=== PATIENT | female | born 1995 | race Caucasian/White ===

== ENCOUNTER 2018-06-18 07:31 | Emergency (ER) | payer OTHER ==
[~2018-06-18] VITALS: Ht 162.6 cm; Wt 93.9 kg
[2018-06-18 07:38] VITALS: Ht 162.6 cm; Wt 93.9 kg
[2018-06-18 09:07] VITALS: BP 133/78
== END 2018-06-18 09:07 | disposition home or self-care (01) ==
LOC: ED 07:31
DX: J06.9 Acute upper respiratory infection, unspecified (principal); E11.9 Type 2 diabetes mellitus without complications
CPT/HCPCS: J7620

== ENCOUNTER 2018-06-18 13:00 | Inpatient (IN) | payer OTHER ==
[~2018-06-18] VITALS: Ht 162.6 cm; Wt 94.1 kg
--- NOTE | 2018-06-18 13:27 | NUR ---
PT SENT BACK TO [facility] TO AWAIT FOR BED AVAILABILITY. PT IS AWAKE AND ALERT, SPEAKING IN FULL CLEAR SENTENCES, AMBULATORY WITH STEADY GAIT.
--- NOTE | 2018-06-18 13:42 | NUR ---
PT PRESENTS TO ED WITH C/O FEVER, CHILLS, COUGH SINCE LAST NIGHT. PT STS SHE WAS SEEN HERE IN ED THIS MORNING AND WAS DC'D HOME WITH URI DX. PT STS SHE HAD A FEVER SPIKE AT HOME AND HER COUGH IS GETTING WORSE. PT STS SHE IS COUGHING UP A LOT OF PHLEGM. PT DENIES CHEST PAIN, ABDOMINAL PAIN, OR SOB. PT ON MONITOR. PT SITTING UP ON GURNEY IN POSITION OF COMFORT, AAOX4, RESP E/U, WHEEZING HEARD IN BILATERAL LUNGS, NO ACUTE DISTRESS NOTED AT THIS TIME.
[2018-06-18 14:48] LABS: BASOPHIL % 0.4 % (0-2); CALCIUM 8.5 mg/dL (8.5-10.1); CARBON DIOXIDE 24.6 mmol/L (21-32); CHLORIDE SERUM 105 mmol/L (98-107); CREATININE SERUM 0.6 mg/dL (0.6-1.0); GFR1 > 60 mL/min; GLUCOSE SERUM 121 mg/dL (74-106); PLATELET COUNT 314 x10^3mcL (130-400); POTASSIUM SERUM 3.5 mmol/L (3.5-5.1); SODIUM SERUM 141 mmol/L (136-145)
[2018-06-18 14:50] LABS: RED CELL DISTRIBUTION WIDTH 14.9 % (11.5-14.5)
[2018-06-18 14:56] LABS: FREE T4 0.86 ng/dL (0.76-1.46); FREE THYROXINE INDEX 2.2 ug/dL (1.4-4.5); T4(THYROXINE) 7.3 ug/dL (4.7-13.3)
[2018-06-18 15:02] LABS: T3 TOTAL 1.2 ng/mL
[2018-06-18 15:05] LABS: ALBUMIN 3.7 g/dL (3.4-5.0); ALKALINE PHOSPHATASE 91 U/L (46-116); ALT/SGPT 27 U/L (14-59); AST/SGOT 18 U/L (15-37); BILIRUBIN TOTAL 0.5 mg/dL (0.20-1.00); C REACTIVE PROTEIN 3.9 mg/dL (<=0.9); TOTAL PROTEIN, SERUM 7.7 g/dL (6.4-8.2)
[2018-06-18 15:14] LABS: CK-MB 0.7 ng/mL (0-3.6)
[2018-06-18 15:22] LABS: UA SPECIFIC GRAVITY <=1.005 (1.005-1.035); microscopic required? YES; urine erythrocyte 2+ (NEGATIVE)
--- NOTE | 2018-06-18 16:02 | NUR ---
X2 ATTEMPTS WERE MADE TO OBTAIN IV ACCESS, NO SUCCESS. PT TOLERATED WELL.
[2018-06-18 16:05] LABS: AMPHETAMINE QUAL UR NONE DETECTED (See below)
--- NOTE | 2018-06-18 16:21 | NUR ---
ATTEMPTED X3. SUCCESSFUL IV IN PLACE TO UPPER RIGHT FA. PER [employer] REP, "SHOULD BE OKAY" FOR CT ANGIO. CT AWARE THAT IV PLACED, FLUSHES WELL, SECURED WITH TEGADERM. PT TOLERATED WELL.
--- NOTE | 2018-06-18 16:31 | NUR ---
PT OFF FLOOR TAKEN TO CT
[2018-06-18 16:39] LABS: ERYTHROCYTE SED RATE 25 mm/hr (0-20)
--- NOTE | 2018-06-18 17:56 | NUR ---
PT SITTING UP ON GURNEY IN POSITION OF COMFORT, AAOX4, RESP E/U, NO ACUTE DISTRESS NOTED AT THIS TIME.
--- NOTE | 2018-06-18 18:50 | NUR ---
PER DR. BAILEY HOLD SENDING PT UNTIL HE SPEAKS TO ADMITTING MD.
[2018-06-18 19:00] LABS: MAGNESIUM 1.8 mg/dL (1.8-2.4); PHOSPHOROUS 2.7 mg/dL (2.5-4.9)
[2018-06-18 19:07] LABS: CHOLESTEROL/HDL RATIO 3.9
[2018-06-18 19:16] VITALS: BP 118/58
--- NOTE | 2018-06-18 19:31 | NUR ---
REPORT GIVEN TO REECE LE ON TELE UNIT TO ASSUME CARE OF PT.
--- NOTE | 2018-06-18 19:47 | NUR ---
RECEIVED PT FROM ED VIA [facility], CAME IN DUE TO SOB AND COUGH. AAOX4. DENIES HEADACHE/DIZZINESS. C/O SOB WORSE ON AMBULATION, O2 SAT=96% ON 2LPM/NC. WHEEZES NOTED ON RIGHT SIDE OF THE LUNG. W/ NON-PRODUCTIVE COUGH. C/O 7/10 PRESSURE CHEST PAIN, NON-RADIATING. SINUS TACHYCARDIA, WW=[id number]. C/O MILD NAUSEA. DENIES ABDOMINAL PAIN. VOIDS. IV SITE ON THE RFA IS PATENT AND INTACT. SIDE RAILS UPX2. CALL LIGHT ON REACH. ENDORSED TO PRIMARY NURSE REY FOR CONTINUITY OF CARE
[2018-06-18 19:57] VITALS: BP 97/59
[2018-06-18 20:06] VITALS: Ht 162.6 cm; Wt 94.1 kg
--- NOTE | 2018-06-19 04:40 | NUR ---
PT SLEPT WELL ALL NIGHT.BREATHING EASY AND NON-LABORED WITH OCCASSIONAL COUGHING NOTED.ON RT PROTOCOL.BREATHING TX GIVEN ORDERED.O2 @ 2L/MIN VIA N/C.IN NO DISTRESS.
[2018-06-19 05:50] VITALS: BP 106/64
[2018-06-19 06:41] LABS: CALCIUM 8.4 mg/dL (8.5-10.1); CARBON DIOXIDE 23.6 mmol/L (21-32); CHLORIDE SERUM 107 mmol/L (98-107); CREATININE SERUM 0.6 mg/dL (0.6-1.0); GFR1 > 60 mL/min; GLUCOSE SERUM 150 mg/dL (74-106); POTASSIUM SERUM 4.1 mmol/L (3.5-5.1); SODIUM SERUM 142 mmol/L (136-145)
[2018-06-19 06:53] LABS: PLATELET COUNT 277 x10^3mcL (130-400)
--- NOTE | 2018-06-19 07:15 | NUR ---
RECEIVED PT FROM CONTINUOUS IMPROVEMENT CONSULTANT. PT AWAKE, ALERT A/OX4 SITTING UP IN BED TALKING ON CELL PHONE. PT ON 2L NC. PT REPORTS SHORTNESS OF BREATH. PT REPORTS CHEST PRESSURE. DENIES PAIN AT THIS TIME. IV ACCESS RFA C/D/I. SALINE LOCKED. PERIPHERAL PULSES PALPABLE, NO EDEMA NOTED. ACTIVE BOWEL SOUNDS NOTED. PT HAD BOWEL MOVEMENT THIS AM, REPORTS FORMED STOOL. SAFETY MEASURES IN PLACE, BED LOW AND LOCKED. PT INSTRUCTED TO USE CALL LIGHT FOR ASSISTANCE.
[2018-06-19 09:23] VITALS: BP 123/66
--- NOTE | 2018-06-19 11:07 | NUR ---
PT SITTING IN BED WITH FAMILY AT BEDSIDE IN NO ACUTE DISTRESS OR DISCOMFORT. PT DENIES PAIN AT THIS TIME. SAFETY MEASURES MAINTAINED.
--- NOTE | 2018-06-19 12:00 | NUR ---
DUE MED ADMINISTERED. PT AWAKE IN NO ACUTE DISTRESS AT THIS TIME. PT DENIES SHORTNESS OF BREATH EXCEPT WHEN AMBULATING TO THE RESTROOM. DENIES ANY PAIN AT THIS TIME. WILL CONT TO MONITOR. SAFETY MAINTAINED. CALL LIGHT WITHIN REACH.
[2018-06-19 12:28] LABS: BAND NEUTROPHIL 12 % (0-10); BASOPHIL 0 % (0-2); MONOCYTE 1 % (0-7); SEGMENTED NEUTROPHILS 77 % (37-75)
[2018-06-19 12:29] LABS: PLATELET MORPHOLOGY GIANT PLATELET SEEN; rbc morphology (normal/abnorm) ABNORMAL (NORMAL)
--- NOTE | 2018-06-19 13:42 | NUR ---
PT AWAKE, ALERT LYING IN BED. DENIES SOB, DENIES ANY PAIN AT THIS TIME. INSTRUCTED PT TO USE CALL LIGHT FOR ANY NEW SYMPTOMS OR FOR ANY ASSISTANCE NEEDED. SAFETY MAINTAINED.
--- NOTE | 2018-06-19 15:30 | NUR ---
PT HEARTRATE 120 AT THIS TIME. PT REPORTS INCREASED HEARTRATE AFTER BREATHING TREATMENTS IS NORMAL FOR HER. DENIES CHEST PAIN OR SHORTNESS OF BREATH AT THIS TIME. WILL CONTINUE TO MONITOR.
--- NOTE | 2018-06-19 16:14 | NUR ---
PT ASLEEP AT THIS TIME HEARTRATE 112. NO ACUTE DISTRESS NOTED AT THIS TIME. WILL CONTINUE TO MONITOR.
[2018-06-19 16:55] VITALS: BP 116/56
--- NOTE | 2018-06-19 18:25 | NUR ---
PT GETTING BILATERAL ULTRASOUND AT THIS TIME. DENIES PAIN OR SHORTNESS OF BREATH AT THIS TIME.
--- NOTE | 2018-06-19 18:41 | NUR ---
PT STABLE AT THIS TIME. ALL NEEDS MET THROUGHOUT SHIFT. PT DENIES PAIN OR SHORTNESS OF BREATH AT THIS TIME. WILL CONTINUE TO MONITOR AND ENDORSE CARE TO CAUSTIC CRESYLATE SHIFT SUPERINTENDENT.
--- NOTE | 2018-06-19 19:03 | NUR ---
DUE LOVENOX ADMINISTERED ORDERED. PT REPORTS SHARP PAIN IN HER ABDOMEN THAT COMES AND GOES. NO ACUTED DISTRESS NOTED AT THIS TIME. WILL ENDORSE TO YARN CONDITIONER.
--- NOTE | 2018-06-19 19:57 | NUR ---
PATIENT RECEIVED AWAKE, ALERT, ORIENTED X4 IN BED. RESPIRATION EVEN AND UNLABORED, ON O2 2L PER NASAL CANNULA. COMPLAINED OF SHARP ABDOMINAL PAIN, PS 2/10, REFUSED TO BE MEDICATED. VOIDING FREELY WITHOUT DIFFICULTY. MOVES ALL EXTREMITIES FREELY, AMBULATORY. SKIN DRY AND INTACT. IV SITE TO RIGHT FOREARM PATENT AND INTACT. ON TELE #14. WILL CONTINUE TO MONITOR.
[2018-06-19 20:55] VITALS: BP 123/74
[2018-06-20 06:00] VITALS: BP 103/52
--- NOTE | 2018-06-20 06:13 | NUR ---
PATIENT SLEEPING IN BED AT THIS TIME. RESPIRATION EVEN AND UNLABORED, ON O2 2L PER NASAL CANNULA. IV SITE NO SIGN OF INFILTRATION. OCC COUGH, GREENISH PHLEGM NOTED. ASSISTED WITH NEEDS. SAFETY OBSERVED. PLACED BED IN THE LOWEST POSITION. PLACED CALL LIGHT WITHIN REACH AT ALL TIMES..
[2018-06-20 06:24] LABS: PLATELET COUNT 336 x10^3mcL (130-400)
[2018-06-20 06:40] LABS: CALCIUM 8.7 mg/dL (8.5-10.1); CARBON DIOXIDE 26.3 mmol/L (21-32); CHLORIDE SERUM 106 mmol/L (98-107); CREATININE SERUM 0.7 mg/dL (0.6-1.0); GFR1 > 60 mL/min; GLUCOSE SERUM 151 mg/dL (74-106); POTASSIUM SERUM 4.4 mmol/L (3.5-5.1); SODIUM SERUM 141 mmol/L (136-145)
[2018-06-20 07:18] LABS: BASOPHIL % 0 % (0-2); RED CELL DISTRIBUTION WIDTH 15.2 % (11.5-14.5)
--- NOTE | 2018-06-20 07:24 | NUR ---
BEDSIDE REPORT RECEIVED FROM SUPERVISOR MACHINE WORKERS NURSE. PATIENT RESTING COMFORTABLY IN BED. RESPIRATIONS EVEN, NO SIGNS OF SOB. NO SIGNS OF PAIN. IV TO RFA SALINE LOCKED. ALL SAFETY PRECAUTIONS MAINTAINED.
[2018-06-20 09:36] VITALS: BP 110/58
[2018-06-20 13:07] VITALS: BP 113/73
[2018-06-20 17:39] VITALS: BP 124/71
--- NOTE | 2018-06-20 19:18 | NUR ---
PATIENT RESTING COMFORTABLY IN BED HEMODIALYSIS NURSE AT BEDSIDE PERFORMING THE HD. ALL SAFETY PRECAUTIONS MAINTAINED. WILL ENDORSE CARE TO PARTS FACILITATOR NURSE. PATIENT IS SLEEPING. NO SIGNS OF PAIN, NO SIGNS OF SOB.
--- NOTE | 2018-06-20 19:25 | NUR ---
PATIENT SITTING UP IN BED COMFPRTABLY. PATIENT DENIES PAIN, OR SOB. IV IS INFUSING WELL. ALL QUESTIONS AND CONCERNS ADDRESSED. ALL SAFETY PRECAUTIONS MAINTAIED. WILL ENDORSE CARE TO ELECTRICIAN MASTER NURSE.
--- NOTE | 2018-06-20 19:55 | NUR ---
RECEIVED REPORT FROM DAY SHIFT RN. PT RESTING IN BED. A/O X4. NO SOB ON O2 2L VIA NC. NO C/O PAIN AT THIS TIME. IV TO RFA, INTACT. SAFETY MEASURES IN PLACE. BED IN LOWEST POSITION. SIDE RAILS UP X2. INSTRUCTED PT TO USE THE CALL LIGHT FOR ASSISTANCE. CALL LIGHT WITHIN REACH.
[2018-06-20 20:50] VITALS: BP 125/70
--- NOTE | 2018-06-21 01:30 | NUR ---
PT RESTING WITH EYES CLOSED. NO SOB ON O2 2L VIA NC. NO DISTRESS NOTED. CALL LIGHT WITHIN REACH.
[2018-06-21 05:50] VITALS: BP 101/69
[2018-06-21 06:16] LABS: PLATELET COUNT 363 x10^3mcL (130-400)
[2018-06-21 06:29] LABS: CALCIUM 8.6 mg/dL (8.5-10.1); CARBON DIOXIDE 24.1 mmol/L (21-32); CHLORIDE SERUM 104 mmol/L (98-107); CREATININE SERUM 0.7 mg/dL (0.6-1.0); GFR1 > 60 mL/min; GLUCOSE SERUM 169 mg/dL (74-106); SODIUM SERUM 138 mmol/L (136-145)
[2018-06-21 06:30] LABS: BASOPHIL % 0 % (0-2); RED CELL DISTRIBUTION WIDTH 14.8 % (11.5-14.5)
--- NOTE | 2018-06-21 06:43 | NUR ---
PT SLEPT WELL DURING SHIFT. NO SOB ON O2 2L VIA NC. NO C/O PAIN. NO DISTRESS NOTED. SAFETY MEASURES MAINTAINED. ALL NEEDS ATTENDED TO. CALL LIGHT WITHIN REACH. WILL ENDORSE CONTINUITY OF CARE TO ONCOMING RN.
--- NOTE | 2018-06-21 07:35 | NUR ---
RECIEVED PT RESTING COMFORTABLY IN BED. VS WNL. A/O X4. LUNGS HAVE LIGHT WHEEZING TO URL. NO RESPIRATORY DISTRESS NOTED. PT DENIES ANY SOB OR PAIN AT THIS TIME.IV AT RFA AND IS INTACT AND PATENT. SAFETY PRECAUTIONS IN PLACE AND CALL LIGHT WITHIN REACH. WILL MONITOR
[2018-06-21 09:15] VITALS: BP 114/72
[2018-06-21] MEDS ORDERED: LEVAQUIN750 MG PO (10:24)
[2018-06-21] MEDS ORDERED: PREDNISONE20 MG PO (10:26)
[2018-06-21] MEDS ORDERED: PROAIR HFA8.5 GM IH (10:27)
[2018-06-21 13:13] VITALS: BP 105/72
== END 2018-06-21 14:22 | disposition home or self-care (01) | DRG 720 ==
LOC: ED 13:00 → DU 17:57 → MU 06-20 09:05
PROVIDERS: Family Medicine; Specialist; ADMIT Internal Medicine
DX: A41.9 Sepsis, unspecified organism (principal); J96.01 Acute respiratory failure with hypoxia; I26.99 Other pulmonary embolism without acute cor pulmonale; J18.9 Pneumonia, unspecified organism; Z68.35 Body mass index [BMI] 35.0-35.9, adult; F17.210 Nicotine dependence, cigarettes, uncomplicated; E11.9 Type 2 diabetes mellitus without complications; E66.01 Morbid (severe) obesity due to excess calories; Z71.3 Dietary counseling and surveillance
CPT/HCPCS: 36600; 84439; 85378; 87804; 94150; G0480; J0456; J0696; J1650; J2405; J2920; J7030; J7040; J7613; J7620; J7644; Q0092; Q9967